=== PATIENT | male | born 1945 | race Caucasian/White ===

== ENCOUNTER 2017-07-09 15:17 | Day surgery (SDC) | payer MEDICARE, SELFPAY ==
[2017-07-09] VITALS (7 sets, daily range): BP systolic 141–154; BP diastolic 86–93; PULSE 57–77; RESP 16–18; TEMP 36.4–36.9; O2SAT 93–97; BMI 27.4
[2017-07-09] MEDS: 0.9% Normal Saline 1,000 ML 1000 ML IV (16:10)
[2017-07-09 16:35] LABS: Anion Gap 5 (5-15); BUN 20 mg/dL (7-18); Calcium,Total 8.8 mg/dL (8.5-10.1); Chloride 106 mmol/L (98-107); Creatinine, Serum 1.05 mg/dL (0.70-1.30); EST Glomerular Filtration Rate 74 mL/min (>60); Est Glom Filt Rate - Afr Amer 90 mL/min (>60); Estimated Creatinine Clearance 71.85 ml/min; Glucose 82 mg/dL (70-110); Potassium 3.8 mmol/L (3.5-5.1); Sodium Level 142 mmol/L (136-145)
--- NOTE | 2017-07-09 16:35 | ED.DCSUM_ITS ---
- ER Visit Summary Date of Service: 07/09/17 Chief Complaint: Flank pain History of Present Illness: The patient is a 72 M with a one-week history of progressive right flank pain. He mentioned this to his doctor last week who checked a urinalysis in the office and noted blood. He was given Flomax. Pain continued and he had an outpatient scan today. This revealed a 10 x 4 cm distal right ureter stone at the level of the mid sacrum. Patient was sent to the ER. Patient states he has not required anything other than Flomax for his pain. He is resting comfortably reading a book. He last ate at noon today. Physical Examination: Vital signs are gross unremarkable. Patient sitting upright in bed no acute distress. Head and neck examination is normal. Heart is regular rate and rhythm. Palpable pulses are noted throughout. Lungs are clear with good air movement throughout. Abdomen is soft and nontender. He has no CVA tenderness on exam. Extremity examination is unremarkable with full range of motion. Test Results: [] Emergency Department Course and Treatment: I reviewed the outpatient CT scan. I spoke with Dr. Martinez, who was here seeing another patient. Plan will be to take the patient to the OR this afternoon. This has been discussed with the patient and he is in agreement. Blood work and urinalysis are pending at this time. Treatment Plan: [] Disposition: Admit Impression: Right-sided ureterolithiasis This note was generated with [employer] dictation software. It may contain incorrect words, spelling, and punctuation that were not noted in review of the chart prior to signing ED Disposition - Plan for ED Patient: Chief Complaint: Flank Pain Referrals: Yao Katz DO [Primary Care Provider] -
[2017-07-09 16:45] LABS: Absolute Neutrophil Count 3.1 X10^3/uL (2.0-7.7); Basophil# 0.03 X10^3/uL; Basophil% 0.6 % (0-1); Eosinophil# 0.19 X10^3/uL; Hematocrit 40.9 % (40-54); Hemoglobin 13.7 g/dl (13.0-16.5); Lymphocyte % 23.1 % (19-41); Mean Corp Hgb Conc 33.5 g/gl (32-36); Mean Corpuscular Hgb 31.9 pg (27.0-32.0); Mean Corpuscular Volume 95.1 fL (80-94); Mean Platelet Vol. 10.3 fl (6.2-12.0); Monocyte# 0.34 X10^3/uL; Monocyte% 7.1 % (0-10); Platelet Count 194 K/mm3 (150-450); RBC Distribution Width CV 12.7 % (11.6-14.6); RBC Distribution Width SD 42.8 fl (35.1-43.9); White Blood Count 4.8 K/mm3 (4.4-11.0)
[2017-07-09 16:50] LABS: POSITIVE COUNT NO; POSITIVE DIFFERENTIAL NO; POSITIVE MORPHOLOGY NO
[2017-07-09 17:17] LABS: Bacteria 0 SEEN /hpf (None Seen); Mucous, Urine 0 SEEN /hpf (<or=2+)
[2017-07-09 17:30] LABS: Color, Urine Yellow (Yellow); Glucose, Dipstick Normal (Normal); Ketone-Dipstick Negative (Negative); Leukocyte Esterase-Dipstick 25 /ul (Negative); Nitrite-Dipstick Negative (Negative); Occult Blood-Urine 250 /ul (Negative); Protein-Dipstick Negative (Negative); Specific Gravity, Urine 1.015 (1.002-1.030); Urine Bilirubin Dipstick Negative (Negative); Urine Clarity Clear (Clear); Urine Urobilinogen Normal (Normal)
[2017-07-09 17:47] LABS: Red Blood Cells-Urine 5-10 SEEN /hpf (0-5); Squamous Epithelial Cells - UA 0-5 SEEN /hpf (0-5); White Blood Cells 0-5 SEEN /hpf (0-5)
--- NOTE | 2017-07-09 18:28 | PCM.HP.STD ---
Problem List (1) Right ureteral calculus Status: Acute (2) Hydronephrosis, right Status: Acute (3) Renal colic on right side Status: Acute History of Present Illness Date of Admission: 07/09/17 Chief Complaint: 10 mm right distal ureteral calculi The patient is a 72 year old male who presented to the emergency room with a 10 mm stone in distal right ureter seen on a CAT scan. He was admitted to the emergency room for control the pain at this point recommend we taken back to the operating room for ureteroscopy laser the stone and stent placement. Past Medical History Allergies No Known Allergies Allergy (Verified 07/09/17 15:18) Home Medications: Ambulatory Orders Medication Instructions Recorded NK [NK] 07/09/17 Surgical History: no surgical history Psychiatric History: No pertinent psych hx Lives: Spouse/ Significant Other Smoking Status: Former smoker Tobacco Use: Non-smoker Alcohol: Occasional Drugs: None - *Family History Maternal History Items: No pertinent history Review of Systems Constitutional: Denies: Chills, Fever, Weight Change HEENT: Denies: Head Aches, Sinus Congestion, Sinus Drainage Cardiovascular: Denies: Chest Pain, Palpitations Respiratory: Denies: Cough, Shortness of breath at rest, Sputum production Gastrointestinal: Reports: Abdominal Pain. Denies: Nausea, Vomiting Genitourinary: Denies: Dysuria Musculoskeletal: Reports: Back Pain. Denies: Joint Pain, Joint Tenderness Skin: Denies: Rash, Wounds Neurological: Denies: Numbness, Tingling, Focal weakness Psychiatric: Denies: Anxiety, Depression, Homicidal Ideations, Suicidal Ideations Hematologic/ Lymphatic: Denies: Easy Bruising, Easy Bleeding VTE Information - Inpt Only VTE Present on Admission: No VTE Mechan Device Prophylaxis: SCD's Patient Problems: Active and Suspected Problems Right ureteral calculus (Acute) Hydronephrosis, right (Acute) Renal colic on right side (Acute) - Physical Exam General: Alert, Oriented x3, Cooperative HEENT: Atraumatic, PERRLA, EOMI, Normocephalic Neck: Supple, No JVD, Negative Carotid Bruits Lungs: Clear to auscultation, Normal air movement Cardiovascular: Regular rate, No murmurs Abdomen: Bowel Sounds Present, Soft, Non Tender Extremities: No edema, Capillary Refill Less than 3 Seconds Skin: No rashes, No breakdown Musculoskeletal: No Tenderness to Palpation of Joints or Extremities Neurological: Cranial nerves II-XII grossly intact Psych/Mental Status: Normal Affect, Appropriate Vital Signs Temp Pulse Resp BP Pulse Ox 98.5 F 57 L 18 141/86 H 97 07/09/17 18:14 07/09/17 18:14 07/09/17 18:14 07/09/17 18:14 07/09/17 18:14 Oxygen Delivery Method Room Air Weight: 91.9 kg Body Mass Index (BMI) 27.4 Laboratory Tests Past 24 Hrs 07/09/17 07/09/17 07/09/17 16:05 16:05 17:10 WBC 4.8 RBC 4.30 L Hgb 13.7 Hct 40.9 MCV 95.1 H MCH 31.9 MCHC 33.5 RDW 12.7 RDW Differential 42.8 Plt Count 194 MPV 10.3 Immature Gran % (Auto) 0.200 Neut % (Auto) 65.0 Lymph % (Auto) 23.1 [place] % (Auto) 7.1 Eos % (Auto) 4.0 Baso % (Auto) 0.6 Absolute Neuts (auto) 3.1 Absolute Lymphs (auto) 1.10 Total Counted Not Reportable Sodium 142 Potassium 3.8 Chloride 106 Carbon Dioxide 31.0 Anion Gap 5 BUN 20 H Creatinine 1.05 Estim Creat Clear Calc 71.85 Est GFR (MDRD) Af Amer 90 Est GFR (MDRD) Non-Af 74 BUN/Creatinine Ratio 19.0 Glucose 82 Calcium 8.8 Urine Color Yellow Urine Clarity Clear Urine pH 6.0 Ur Specific [place] 1.015 Urine Protein Negative Urine Glucose (UA) Normal Urine Ketones Negative Urine Occult Blood 250 H Urine Nitrite Negative Urine Bilirubin Negative Urine Urobilinogen Normal Ur Leukocyte Esterase 25 H Urine RBC 5-10 SEEN Urine WBC 0-5 SEEN Ur Squamous Epith Cells 0-5 SEEN Urine Bacteria 0 SEEN Urine Mucus 0 SEEN Assessment/Plan Active and Suspected Problems Right ureteral calculus (Acute) Hydronephrosis, right (Acute) Renal colic on right side (Acute) Assessment and plan 72-year-old male with obstructing stone in the distal right ureter, plan to taken to surgery today for right ureteroscopy laser of the stone and stent placement on the right side.
--- NOTE | 2017-07-09 18:36 | PCM.DC.URO ---
Discharge Diet: Light diet - advance as tolerated Discharge Activity: May not drive while taking narcotic pain medications. Call your doctor if your incision/area has: Continuous Slow Oozing, Sudden Increased Bleeding, Increased Pain/ Swelling, Increased Redness, Foul Smelling Discharge, Swelling at the incision site Call your doctor if you observe: Fever of 101 or Higher Suture Line Care: Avoid Pulling/Pushing, Avoid Pinching/Bending Allergies/Adverse Reactions: Allergies No Known Allergies Allergy (Verified 07/09/17 15:18) Medications to take at Discharge Ciprofloxacin [Cipro] 500 mg PO BID #6 tab 07/09/17 Hydrocodone/Acetaminophen [[place] 5-325 Tablet] 1 ea PO Q4H PRN PRN #14 tab 07/09/17 Phenazopyridine [Pyridium] 100 mg PO TID #20 tab 07/09/17 The following prescriptions were given: Hydrocodone/Acetaminophen [[place] 5-325 Tablet] 1 ea PO Q4H PRN PRN #14 tab PRN Reason: Pain Ciprofloxacin [Cipro] 500 mg PO BID #6 tab Phenazopyridine [Pyridium] 100 mg PO TID #20 tab Primary Care Physician: Yao Katz DO [Primary Care Provider] - Please Follow Up With: Jonny Martinez MD - call if need to change. When: Appt SaturdayJul 16 at 9:00 am to remove stent
--- NOTE | 2017-07-09 18:39 | DCINST_ITS ---
Discharge Diet: Light diet - advance as tolerated Discharge Activity: May not drive while taking narcotic pain medications. Call your doctor if your incision/area has: Continuous Slow Oozing, Sudden Increased Bleeding, Increased Pain/ Swelling, Increased Redness, Foul Smelling Discharge, Swelling at the incision site Call your doctor if you observe: Fever of 101 or Higher Suture Line Care: Avoid Pulling/Pushing, Avoid Pinching/Bending Allergies/Adverse Reactions: Allergies No Known Allergies Allergy (Verified 07/09/17 15:18) Medications to take at Discharge Ciprofloxacin [Cipro] 500 mg PO BID #6 tab 07/09/17 Hydrocodone/Acetaminophen [[place] 5-325 Tablet] 1 ea PO Q4H PRN PRN #14 tab 07/09 Phenazopyridine [Pyridium] 100 mg PO TID #20 tab 07/09/17 The following prescriptions were given: Hydrocodone/Acetaminophen [[place] 5-325 Tablet] 1 ea PO Q4H PRN PRN #14 tab PRN Reason: Pain Ciprofloxacin [Cipro] 500 mg PO BID #6 tab Phenazopyridine [Pyridium] 100 mg PO TID #20 tab Primary Care Physician: Yao Katz DO [Primary Care Provider] - Please Follow Up With: Jonny Martinez MD - call if need to change. When: Appt SaturdayJul 16 at 9:00 am to remove stent
[2017-07-09] MEDS: Cefazolin 2 GM in 0.9% Normal Saline 100 ML IV (19:01)
--- NOTE | 2017-07-09 19:46 | OP.PCM_ITS ---
Problem List (1) Right ureteral calculus Status: Acute (2) Hydronephrosis, right Status: Acute (3) Renal colic on right side Status: Acute Report of Operation Date of Procedure: 07/09/17 Pre-Operative Diagnosis: Right ureteral calculi Post-Operative Diagnosis: Same Surgery/Procedure Performed:: Cystoscopy, right retrograde pyelogram, right ureteroscopy laser of stone, and right stent placement. Description of Surgical Findings:: 72-year-old male was taken back to the operating room after smooth induction of general anesthesia he was placed in dorsal lithotomy position the penis and testicle were prepped and draped in the usual sterile fashion. I went into the bladder through the urethra with a 21 Portuguese rigid cystourethroscope using a 30 ? lens. The entire length of the urethra is normal the pendulous urethra is normal the movement membranous urethra is normal the bulbar urethra is normal, prostate was slightly enlarged slight obstruction. I then used the wire and a Pollack catheter and cannulated the distal right ureter. I first I really can see the stone under retrograde periods I did a retrograde contrast and then we could see the stone in the distal ureter. I then advanced a wire up into the right kidney over the wire I used a dual-lumen catheter placed a second wire little difficult as the wire was coiling but eventually at the wire straight into the kidney I then drained the bladder with a red rubber catheter went into the bladder and the ureter with a flexible ureteroscope encountered the stone we had the use manual irrigation to distend the ureter is is quite a large stone with this within lasered into little tiny pieces and all the pieces then floated into the bladder. At this point went all the way to the kidney all along the course of the ureter no other stones are seen stone and had been later had floated out into little pieces of the bladder I then drained the bladder went into the bladder with a 21 Portuguese rigid cystourethroscope over the wire I loaded up the stent, and then advanced a 6 Portuguese by 26 cm stent into the right kidney. But the stent in good position and the stent coiled in the kidney and bladder good position I then trimmed the string on the stent patient' s anesthetic was reversed bladder was drained is take taken back to PACU in good condition, see the patient back next week for cystoscopy stent removal. Type of Anesthesia:: General Drains: right stent - Admit VTE Documentation VTE Present on Admission: No VTE Mechan Device Prophylaxis: SCD's VTE Pharm Prophylaxis ordered?: No Reason prophylaxis not ordered:: Treatment Not Indicated
== END 2017-07-09 20:44 | disposition home or self-care (01) ==
LOC: ED 16:36 → SDC 17:05 → AC 17:06
PROVIDERS: Emergency Provider Emergency Medicine; Family Provider Student in an Organized Health Care Education/Training Program; PCP Student in an Organized Health Care Education/Training Program; Visit Provider Urology
PROC: 0TJ98ZZ Inspection of Ureter, Via Natural or Artificial Opening Endoscopic (ICD-10-PCS; CPT 52352; principal; 2017-07-09 17:45)
DX: N13.2 Hydronephrosis with renal and ureteral calculous obstruction (principal); Z87.442 Personal history of urinary calculi; Z90.89 Acquired absence of other organs; Z87.891 Personal history of nicotine dependence
CPT/HCPCS: 00873; 52356; 76000; 80048; 81001; 85025; 99282; J7030; J7120; A4216; C1758; C1769; C2617; J2405

== ENCOUNTER → 2017-07-18 09:46 | Outpatient (CLI) | payer MEDICARE, SELFPAY ==
--- NOTE | 2017-07-18 09:49 | US_ITS ---
STUDY: RENAL ULTRASOUND - COMPLETE REASON FOR EXAM: Male, 72 years old. Renal abnormality. TECHNIQUE: Ultrasound evaluation of the kidneys was performed with real-time and static lu-scale imaging. COMPARISON: None. FINDINGS: RIGHT KIDNEY: Normal location of the right kidney, which is normal in size. The right kidney measures 11.4 sinus by 6.0 cm x 6.7 cm. There is a normal cortex of the right kidney. The renal cortex measures 2.0 cm. There is no right renal mass or cyst. There are no right renal calculi. Minimal fullness of the renal pelvis. DISTAL RIGHT URETER: There is non-visualization of the distal right ureter. There is no demonstrated right ureterovesical junction calculus. There is a visualized right ureteral jet. LEFT KIDNEY: Normal location of the left kidney, which is normal in size. The left kidney measures 12.0 cm x 4.7 cm x 7.0 cm. There is a normal cortex of the left kidney. The renal cortex measures 2.1 cm. There is a 1 cm x 1.2 cm x 1.0 cm cyst. There are no left renal calculi. There is no left hydronephrosis. DISTAL LEFT URETER: There is non-visualization of the distal left ureter. There is no demonstrated left ureterovesical junction calculus. There is no demonstrated left ureteral jet. BLADDER: The distended urinary bladder has a volume of 455 ml. There is a normal wall thickness of the distended urinary bladder. There is no demonstrated mass within the urinary bladder. There are no demonstrated bladder calculi. US/Kidney and Bladder IMPRESSION: Minimal fullness of the right renal pelvis. Small left renal cyst. Electronically Signed: Fco Quezada MD at 15:22 EST Tel [phone], Service support ,
== END ==
PROVIDERS: Family Provider Student in an Organized Health Care Education/Training Program; PCP Student in an Organized Health Care Education/Training Program; Visit Provider Urology
DX: N28.9 Disorder of kidney and ureter, unspecified (principal)
CPT/HCPCS: 76770

== ENCOUNTER → 2018-12-26 14:13 | Outpatient (CLI) | payer MEDICARE, SELFPAY ==
--- NOTE | 2018-12-26 14:21 | CT_ITS ---
STUDY: CT BRAIN AND SINUSES WITHOUT CONTRAST REASON FOR EXAM: Male, 73 years old. RADIATION DOSAGE (If Supplied By Facility): CTDIvol = ( 33.06 ) mGy, DLP = ( 842.11 ) mGycm TECHNIQUE: Transaxial CT imaging of the brain was performed without administration of contrast. Individualized dose optimization techniques were used for this CT. COMPARISON: No relevant priors. FINDINGS: CT BRAIN Limited study of the brain with omission of the posterior aspect due to positioning artifact.. Mild atrophy and periventricular white matter ischemic changes. No evidence for obstructive hydrocephalus mass or acute bleed within the visualized portions of the brain. CT SINUSES Post Surgical Changes: None. Frontal Sinus and Recess: Normal aeration without mucosal inflammatory disease. Ethmoidal Sinuses: Minor mucosal thickening of the ethmoid sinuses without air-fluid level. Maxillary Sinuses: Tiny polypoid lesion or mucous retention cyst in right maxillary sinus without air-fluid level.. Minor mucosal thickening of the maxillary sinuses mildly narrowing the sinus ostia and infundibula. Sphenoid Sinus: Normal aeration without mucosal inflammatory disease. Sphenoethmoidal Recess: Clear. Nasal Turbinate (Right): Middle Turbinate (Right): Normal. Middle Turbinate (Left): Normal. Inferior Turbinate (Right): Normal. Inferior Turbinate (Left): Normal. Nasal Septum: Midline. Nasal Airway: Clear. Cribiform Plate / Anterior Cranial Fossa: Normal. Orbits: Normal. CT/Sinus/Facial Bone IMPRESSION: Mild bilateral maxillary and ethmoid sinus disease Limited study of the brain due to positioning artifact demonstrating mild atrophy and periventricular white matter ischemic changes. Electronically Signed: Yakov Leonard MD at 16:57 EDT , Service support ,
== END ==
PROVIDERS: Family Provider Student in an Organized Health Care Education/Training Program; PCP Student in an Organized Health Care Education/Training Program; Referring Provider Otolaryngology; Visit Provider Otolaryngology
DX: J32.9 Chronic sinusitis, unspecified (principal)
CPT/HCPCS: 70486

== ENCOUNTER → 2023-09-30 | Outpatient (CLI) | payer MEDICARE, SELFPAY ==
--- NOTE | 2023-09-30 11:03 | MRI_ITS ---
STUDY: MRI BRAIN WITH AND WITHOUT CONTRAST (ATTENTION INTERNAL AUDITORY CANALS - I.A.C.''s) REASON FOR EXAM: Male, 78 years old. ASYMMETRIC HEARING LOSS, RIGHT and gt; LEFT , NO PAIN OR TINNITUS TECHNIQUE: Standardized multiplanar fat and water weighted pulse sequences were obtained. 15ML IV CLARISCAN was administered for the contrast portion of the examination. COMPARISON: None. FINDINGS: Normal bilateral temporal bones. Normal bilateral internal auditory canals. There is no demonstrated intracanalicular or cisternal vestibular schwannoma (acoustic neuroma). There is no enhancement of the bilateral VIIth or VIIIth cranial nerves. Normal bilateral cochlea, vestibules and semicircular canals. Mild developmental asymmetry of the lateral ventricles. No communicating or noncommunicating hydrocephalus. Normal white matter tracts of the supratentorial brain. Normal bilateral basal ganglia. Normal thalami. Normal flow voids within the major intracranial circulation suggesting patency by spin echo criteria. Normal venous enhancement. There is no enhancing intra-axial or extra-axial abnormality. There is no extra-axial fluid accumulation. Normal sella turcica, pituitary gland, infundibular stalk, optic chiasm and hypothalamus. Normal tectal plate and pineal gland. Normal midbrain, denise and medulla. Normal cerebellum. Normal basal cisterns. No demonstrated orbital abnormality, within the constraints of a routine brain study. Normal visualized paranasal sinuses. Normal calvarium and skull base. Normal visualized soft tissue structures. Normal visualized upper cervical spine. MRI/Brain W/WO Contrast IMPRESSION: Normal unenhanced and enhanced MRI of the brain and bilateral internal auditory canals (I.A.C''s). Electronically Signed: Guicho Lagunas MD at 14:48 EDT ,
[2023-09-30 11:37] LABS: CREATININE FINGERSTICK 1.2 mg/dL (0.70-1.30); EGFR FINGERSTICK > 60.0000 mL/min (>60)
== END | disposition home or self-care (01) ==
LOC: MRI 10:56
PROVIDERS: PCP Student in an Organized Health Care Education/Training Program; Visit Provider Otolaryngology
DX: H90.3 Sensorineural hearing loss, bilateral (principal)
CPT/HCPCS: 70553; A9575

== ENCOUNTER 2023-12-27 14:30 | Emergency (ER) | payer MEDICARE, SELFPAY ==
[2023-12-27 14:30] VITALS: BP 138/64; PULSE 79; RESP 16; TEMP 36.6; O2SAT 94; BMI 24.9
--- NOTE | 2023-12-27 14:56 | EKG12_ITS ---
Test Reason : CP Blood Pressure : / mmHG Vent. Rate : 070 BPM Atrial Rate : 070 BPM P-R Int : 154 ms QRS Dur : 144 ms QT Int : 394 ms P-R-T Axes : 008 016 017 degrees QTc Int : 425 ms Normal sinus rhythm Right bundle branch block Cannot rule out Inferior infarct , age undetermined Abnormal ECG Confirmed by MALLORY JORDAN, BERT ([id number]), editor producer PRINCE SWIFT ([id number]) on 01/01/2024 10:47:49 A M Referred By: LUIS/NICHOLE Confirmed By:LIEN TEJADA MD
--- NOTE | 2023-12-27 14:57 | EDS_ITS ---
HPI History of Present Illness Chief Complaint: Chest Pain Detail of Chief Complaint: Bilateral pleuritic chest pain and upper abdominal pain Informant: patient Onset/Context/Timing Onset: Days Context: Sudden Onset Timing: Intermittent Quality: Hurts with breathing Location: Right and left anterior lower chest and upper abdomen Current Severity: Mild with deep breathing Maximum Severity: Moderate Worsened by: Breathing Relieved by: Nothing Associated Symptoms Associated Symptoms: Temperature at home of 100.0 ?F. Narrative Narrative: Patient is a 78-year-old male with no significant past medical history other than hydronephrosis in 2018 who presents with pleuritic bilateral lower anterior chest pain. He reports temperature at home 100.0 ?F. He denies headache, visual, ocular auditory symptoms. He denies rhinorrhea, congestion, postnasal drainage or sore throat. He denies cough. He denies nausea, vomiting or diarrhea. He denies intolerance to any foods. Patient denies history of VTE. He has no risk factors for VTE. He denies leg pain, swelling discoloration. Patient states he has not had anything like this before. He had a recent EKG at the [facility] which did reveal a right bundle branch block. Patient went to urgent care and he was sent here. Prior similar symptoms: No Recent Illness/Hospitalization: No PFSH PFSH Medical History no medical history no medical history Home Medications ?Medication ?Instructions ?Recorded ?Last Taken ?Type ciprofloxacin HCl 500 mg tablet 500 mg PO BID #6 tabs 07/09/17 Unknown Rx hydrocodone-acetaminophen 5-325mg 1 ea PO Q4H PRN PRN Pain #14 tabs 07/09/17 Unknown Rx 5mg-325mg phenazopyridine 100 mg tablet 100 mg PO TID #20 tabs 07/09/17 Unknown Rx Allergy/AdvReac Type Severity Reaction Status Date / Time No Known Allergies Allergy Verified 12/27/23 14:32 Family History no significant family his Surgical History no surgical history no surgical history Social History Smoking Status: Former smoker ROS ROS ED Constitutional Constitutional ED: Reports fever(s); Denies chills, subjective or sweats Eyes Eyes: Denies blurry vision or change in vision ENT ENT ED: Denies ear pain, rhinorrhea or sore throat Cardiovascular Cardiovascular: Reports chest pain; Denies orthopnea, palpitations, paroxysmal nocturnal dyspnea or racing heartbeat Respiratory/Chest Respiratory/Chest: Reports dyspnea; Denies cough, dyspnea on exertion, orthopnea or paroxysmal nocturnal dyspnea Gastrointestinal Gastrointestinal: Reports abdominal pain; Denies constipation, diarrhea, melena, nausea or vomiting Genitourinary Genitourinary ED: Denies dysuria, hematuria or urinary frequency Musculoskeletal Musculoskeletal: Denies arthralgias, back pain, myalgias or neck pain Integumentary Denies rash Neurologic Neurologic: Denies headache(s), paresthesias or weakness Hematologic/Lymphatic Hematologic/Lymphatic: Reports systems reviewed and no addt'l complaints, except as documented Allergic/Immunologic Allergic/Immunologic ED: Denies mouth swelling or tongue swelling EXAM Physical Exam Const Vital Signs: 12/27/23 14:30 12/27/23 15:04 Temperature 97.8 F Temperature Source Temporal Pulse Rate 79 72 Respiratory Rate 16 17 Blood Pressure 138/64 H 130/72 H Blood Pressure Mean 88 91 Pulse Ox 94 Oxygen Delivery Method Room Air Positive well nourished and well developed General Appearance ED: well developed and NAD; Negative for cyanotic or diaphoretic HEENT Reports moist mucous membranes HEENT Narrative: Head is atraumatic no cephalic. Ears normal. Nares patent. Mucosa moist. Eyes PERRL and EOMs intact bilaterally General Eye ED: Negative for pale conjunctiva or scleral icterus Neck no lymphadenopathy, supple and no JVD Chest Wall inspection of chest normal Resp normal respiratory effort and No clear to auscultation bilaterally Resp Narrative: There is egophony right lower lobe posteriorly. There is no increased vocal fremitus. Auscultation: rales right lower Cardio regular rate, regular rhythm, S1 normal heart sound, S2 normal heart sound and no murmurs GI normal to inspection, nondistended, normoactive bowel sounds, non-tender and no masses; Negative for non-distended or hepatosplenomegaly GI Narrative: There is tympanitic throughout. Palpation: soft Back/Spine no CVA tenderness Extremity Extremity Narrative: There is no asymmetry, swelling, discoloration, leg vein distention, palpable cords or tenderness along the distribution of the deep venous system. Neuro oriented x3 and CN's II-XII intact bilaterally Sensorium / Orientation: alert Psych mental status grossly normal Skin no rashes or lesions noted, no wounds and skin turgor normal General Skin Exam: Negative for elasticity normal Lesions: No lesion noted MDM MDM MDM Narrative Medical decision making narrative: Differential diagnosis would include viral illness with pleurisy, pneumonia right lower lobe, pulmonary embolus, viral illness. Patient is not PERC negative. D-dimer was obtained. EKG was ordered per nurse protocol and reveals a sinus rhythm rate of 70 with a right bundle branch block. Will obtain chest x-ray because of abnormal auscultative findings. If there is evidence of pneumonia on the chest x-ray this would explain an elevated D-dimer if elevated. Lab Data Attestation: I reviewed the patient's lab results. Lab results narrative: Patient is anemic compared to CBC obtained in 2018. White counts normal. There is a slight shift. There is no bandemia. D-dimer is 0.72. This is normal when corrected for age. Labs: Laboratory Results - last 24 hr 12/27/23 15:10 WBC 6.0 RBC 3.34 L Hgb 10.5 L Hct 30.9 L MCV 92.5 MCH 31.4 MCHC 34.0 RDW Std Deviation 42.7 RDW Coeff of [place] 12.9 Plt Count 163 MPV 9.9 Immature Gran % (Auto) 0.300 Neut % (Auto) 79.4 H Lymph % (Auto) 11.5 L Mckean % (Auto) 8.0 Eos % (Auto) 0.5 Baso % (Auto) 0.3 Absolute Neuts (auto) 4.8 Absolute Lymphs (auto) 0.69 L Nucleated RBC % 0 D-Dimer Quant (PE/DVT) 0.72 H* Sodium 138 Potassium 3.5 Chloride 107 Carbon Dioxide 25.0 Anion Gap 6 BUN 10 Creatinine 0.82 Estim Creat Clear Calc 84.12 Est GFR (MDRD) Af Amer 118 Est GFR (MDRD) Non-Af 97 BUN/Creatinine Ratio 12.2 Glucose 98 Calcium 9.1 Radiography Chest X-Ray - ED: 2 View, Read by ED Physician, Normal, Heart, Lungs (There may be slight increased markings right lower lobe. There is no recent x-ray for comparisonMost recent x-ray on record is 2012), Mediastinum and Bony Structures Diagnostic Testing: Clinical Impression(s) from Imaging Studies Chest X-Ray 12/27/23 15:35 IMPRESSION: No acute thoracic pathology. Electronically Signed: Christopher Cartwright MD at 15:53 EDT , EKG Initial EKG: Attestation: I personally reviewed and interpreted this EKG as follows: Interpretation: Sinus Rhythm (Rate is 70. There is right bundle branch block. HI interval is 154 ms. Cures duration 144 ms. QT durations are 94 ms. [place] is normal.) Discharge Plan Triage Chief Complaint: Chest Pain ED Provider: Patric Chaudhary Dx/Rx/DC Orders Clinical Impression: Acute pleurisy without pleural effusion, Fever, Anemia, unspecified Instructions: ED Pleurisy Prescriptions: No Action hydrocodone-acetaminophen 1 EACH tablet 1 ea PO Q4H PRN PRN (Reason: Pain) Qty: 14 0RF ciprofloxacin HCl 500 MG tablet 500 mg PO BID Qty: 6 0RF phenazopyridine 100 MG tablet 100 mg PO TID Qty: 20 0RF Primary Care Provider: Yao Katz Referrals: Yao Katz, DO [Primary Care Provider] - 1 Week if not improving Activity Restrictions/Additional Instructions: If you have ibuprofen at home you can take 4 tablets every 8 hours for the next 3 to 5 days. If you have Aleve at home take 2 tablets every 12 hours for the next 3 to 5 days. Print Language: [place] Disposition Disposition: Home, Self Care
[2023-12-27 15:04] VITALS: BP 130/72; PULSE 72; RESP 17
[2023-12-27 15:15] LABS: Absolute Lymphocyte Count 0.69 X10^3/uL (0.83-4.51); Absolute Neutrophil Count 4.8 X10^3/uL (2.0-7.7); Basophil# 0.02 X10^3/uL; Basophil% 0.3 % (0-1); Eosinophil# 0.03 X10^3/uL; Eosinophils% 0.5 % (0-5); Hematocrit 30.9 % (40-54); Hemoglobin 10.5 g/dL (13.0-16.5); Lymphocyte # 0.69 X10^3/ul (0.83-4.51); Lymphocyte % 11.5 % (19-41); Mean Corpuscular Hgb 31.4 pg (27.0-32.0); Mean Corpuscular Volume 92.5 fL (80-94); Mean Platelet Vol. 9.9 fl (6.2-12.0); Monocyte# 0.48 X10^3/uL; NRBC Flagged by Analyzer 0 % (0-5); Neutrophil # 4.75 X10^3/uL (2.7-7.7); Neutrophil % 79.4 % (47-70); Platelet Count 163 K/mm3 (150-450); RBC Distribution Width CV 12.9 % (11.6-14.6); RBC Distribution Width SD 42.7 fl (35.1-43.9); Red Blood Count 3.34 M/mm3 (4.6-6.2)
--- NOTE | 2023-12-27 15:35 | RAD_ITS ---
STUDY: X-RAY CHEST REASON FOR EXAM: Male, 78 years old. Chest pain TECHNIQUE: Frontal and lateral views of the chest COMPARISON: 04/27/2013 FINDINGS: The lungs are clear. There are no pleural effusions. There is no pneumothorax. The heart is normal in size. The visualized osseous structures are within normal limits. RAD/Chest PA and Lateral IMPRESSION: No acute thoracic pathology. Electronically Signed: Christopher Cartwright MD at 15:53 EDT ,
[2023-12-27 15:38] LABS: D-Dimer Quantitative (DVT/PE) 0.72 FEU/ug/m (0.27-0.49)
[2023-12-27 16:04] LABS: Anion Gap 6 (5-15); BUN 10 mg/dL (7-18); BUN/Creat Ratio 12.2 RATIO (10-20); Calcium,Total 9.1 mg/dL (8.5-10.1); Chloride 107 mmol/L (98-107); Creatinine, Serum 0.82 mg/dL (0.70-1.30); EST Glomerular Filtration Rate 97 mL/min (>60); Est Glom Filt Rate - Afr Amer 118 mL/min (>60); Estimated Creatinine Clearance 84.12 ml/min; Glucose 98 mg/dL (74-106); Potassium 3.5 mmol/L (3.5-5.1); Sodium Level 138 mmol/L (136-145)
[2023-12-27 16:31] VITALS: BP 108/68; PULSE 68; RESP 18; TEMP 36.6; O2SAT 99
== END 2023-12-27 16:35 | disposition home or self-care (01) ==
PROVIDERS: Emergency Provider Emergency Medicine; PCP Student in an Organized Health Care Education/Training Program; Visit Provider Emergency Medicine
DX: R09.1 Pleurisy (principal); R50.9 Fever, unspecified; D64.9 Anemia, unspecified; Z87.891 Personal history of nicotine dependence
CPT/HCPCS: 71046; 80048; 85025; 85379; 93005; 99285; A4216